=== PATIENT | male | born 1950 | race Caucasian/White ===

== ENCOUNTER 2016-06-07 16:00 | Outpatient (RCR) | payer BC ==
[~2016-06-07 16:00] MED LIST: ASPIRIN E.C. 8181 MG PO; FLOMAX 0.40.4 MG/CAP PO; SYNTHROID0.075 MG/T PO; ZESTRIL 10MG10 MG PO
== END 2016-06-27 08:42 | disposition home or self-care (01) ==
LOC: MKS.ESL.PT 16:00
DX: R10.31 Right lower quadrant pain (principal); M25.561 Pain in right knee

== ENCOUNTER 2021-09-24 20:44 | Emergency (ER) | payer BC ==
[~2021-09-24] VITALS: Ht 157.5 cm; Wt 120.5 kg
[2021-09-24 21:27] LABS: BASO % 0.2 % (0.0-2.0); EOS # 0.1 K/mm3 (0.0-0.7); EOS % 0.7 % (0.0-4.0); GRAN # 14.5 K/mm3 (1.4-6.5); GRAN % 88.7 % (42.2-75.2); HEMATOCRIT 40.4 % (42.0-52.0); LYMPH # 0.5 K/mm3 (1.2-3.4); LYMPH % 3.1 % (20.0-51.0); MEAN CELL VOLUME 92 fl (80.0-100.0); MEAN CORPUSCULAR HEMOGLOBIN 32 pg (27-31); MEAN CORPUSCULAR HGB CONC 35 g/dl (33.0-37.0); MEAN PLATELET VOLUME 9.1 fl (7.4-10.4); MONO # 1.1 K/mm3 (0.1-0.6); MONO % 6.9 % (1.7-9.3); PLATELET COUNT 337 K/mm3 (130-400); RED BLOOD COUNT 4.41 M/mm3 (4.20-5.60); REDCELL DISTRIBUTION WIDTH-CV 12.9 % (11.5-14.5)
[2021-09-24 21:51] LABS: ALANINE AMINOTRANSFERASE 20 U/L (0-55); ALBUMIN 3.8 gm/dL (3.4-4.8); ALKALINE PHOSPHATASE 73 U/L (40-150); ANION GAP 11 mmol/L (7-16); AST,SGOT 16 U/L (5-34); BILIRUBIN,TOTAL 0.6 mg/dL (0.2-1.2); BLOOD UREA NITROGEN 28 mg/dL (8-26); C-REACTIVE PROTEIN 2.27 mg/dL (0.00-0.50); CALCIUM 8.9 mg/dL (8.4-10.2); CARBON DIOXIDE 19 mmol/L (23-31); CHLORIDE 104 mmol/L (98-107); CREATINE KINASE 97 U/L (30-200); CREATININE, serum 1.25 mg/dL (0.72-1.25); GLUCOSE 162 mg/dL (70-99); MAGNESIUM 1.8 mg/dL (1.6-2.6); POTASSIUM 4.8 mmol/L (3.5-4.5); SODIUM 134 mmol/L (136-145); TOTAL PROTEIN 6.9 gm/dL (6.2-8.1)
[2021-09-24 22:03] LABS: TROPONIN-I < 0.010 ng/mL (0.00-0.033)
[2021-09-24 22:27] LABS: ACETONE,SERUM NEGATIVE
[2021-09-25 00:55] VITALS: BP 121/67; PULSE 70; TEMP 98.7
== END 2021-09-25 00:55 | disposition home or self-care (01) ==
LOC: COL.ER 20:44
PROVIDERS: Emergency Medicine
DX: E11.65 Type 2 diabetes mellitus with hyperglycemia (principal); R79.1 Abnormal coagulation profile
CPT/HCPCS: J7030; Q9967

== ENCOUNTER 2023-02-18 06:47 | Day surgery (SDC) | payer MEDICARE, OTHER ==
[2023-02-18] VITALS (12 sets, daily range): BP systolic 113–151; BP diastolic 55–83; PULSE 52–76; TEMP 97.4–98
[~2023-02-18] VITALS: Ht 177.8 cm; Wt 120.3 kg
[2023-02-18] MEDS ORDERED: COZAAR100 MG PO (07:31)
[2023-02-18] MEDS ORDERED: TRULICITY0.75 MG/0. SQ (07:31)
[2023-02-18] MEDS ORDERED: ALDACTONE50 MG PO (07:32)
--- NOTE | 2023-02-18 07:35 | NUR ---
PATIENT AMBULATED TO BAY 1 WITH STEADY GAIT. ALERT AND ORIENTED X4. PATIENT STATED UNDERSTANDING OF PROCEDURE. CONSENT SIGNED. ASSESSMENT COMPLETED. 18G IV STARTED IN RIGHT FOREARM. LR INFUSING WITHOUT DIFFICULTIES. BLOOD GLUCOSE 112. YENY HOSE APPLIED TO NON-OPERATIVE EXTREMITY. WARM BLANKET PROVIDED. NO FURTHER NEEDS NOTED. RESTING IN COT. CALL LIGHT IN REACH. AT BEDSIDE.
--- NOTE | 2023-02-18 12:24 | NUR ---
Initial visit: Equal Employment Opportunity Officer stopped by room on rounds. Pt was resting and content with by his side. Pt has no needs right now. Equal Employment Opportunity Officer will follow up as needed.
--- NOTE | 2023-02-18 13:11 | NUR ---
Patient has done well post op. Vss on room air. Tolerated diabetic diet. [facility] rounded. Plan of care reviewed. Pain managed at this time with tylenol. Cms intact. Arian & scds. Left knee drg CDI. Will monitor.
--- NOTE | 2023-02-18 14:50 | NUR ---
Patient up to chair with therapy, did well. Continues to deny the need for narcotic pain medication
--- NOTE | 2023-02-18 17:04 | NUR ---
Patient up to the bathroom & was able to void without difficulty. His pain increased after the movement. Pain increased from 3 to 6. Pain pill per request. Dressing intact. Ice on. His at bedside.
--- NOTE | 2023-02-18 19:10 | NUR ---
Patient sitting in chair. Encouraged to take patient home medication home. Educated patient and that staff will administer all medication and patient not to take any medications on his own. REport to asha
--- NOTE | 2023-02-18 19:18 | NUR ---
REPORT RECIEVED FROM CHAPITO DAUGHERTY. PT RESTING IN RECLINER WITH AT BEDSIDE. PT A&O X4. CALL LIGHT IN PLACE. ALL NEEDS MET AT THIS TIME.
--- NOTE | 2023-02-18 22:22 | NUR ---
SHIFT ASSESSMENT COMPLETE, SEE DOCUMENTATION. PT REPORTS PAIN IN THE LEFT KNEE AND PRN WAS ADMINISTERED. PT ASSISTED TO BED UTILIZING GAIT BELT AND WALKER, GAIT STEADY. CALL LIGHT IN PLACE. ALL NEEDS MET AT THIS TIME.
[2023-02-19 03:49] VITALS: BP 143/70; PULSE 50; TEMP 98.1
--- NOTE | 2023-02-19 05:54 | NUR ---
PT C/O LEFT HIP PAIN AFTER AMBULATING TO BATHROOM. PRN OXYCODONE ADMINISTERED WITH SCHEDULED TYLENOL. PT BACK IN BED. 65CC DRAINED FROM HEMOVAC. CALL LIGHT IN PLACE. ALL NEEDS MET AT THIS TIME.
[2023-02-19 06:44] LABS: HEMOGLOBIN 12.3 g/dl (13.5-18.0)
[2023-02-19 07:00] VITALS: BP 134/62; PULSE 60; TEMP 98.2
[2023-02-19 07:01] LABS: CALCIUM 8.9 mg/dL (8.4-10.2); CREATININE, serum 1.28 mg/dL (0.72-1.25); POTASSIUM 4.6 mmol/L (3.5-4.5)
[2023-02-19 10:50] VITALS: BP 138/66; PULSE 54; TEMP 98.2
--- NOTE | 2023-02-19 12:37 | NUR ---
soaking tank worker met with patient and to discuss discharge planning. Patient confirmed he lives in [place] with his , Roselia, P# [phone]. Patient confirmed his primary care physician is Dr. Brown and preferred pharmacy is [facility] in [place]. Patient denied any difficulty affording his medications. Patient expressed his DPOA-HC is Roselia, his . Patient had a walker and CPAP machine at home. Patient expressed he is independent with his ADLS. soaking tank worker asked about outpatient PT. Patient and expressed his outpatient PT was already scheduled through [facility]. Patient plans to return home at time of discharge with outpatient PT. soaking tank worker attempted to contact the [facility] to confirm patient's appointment; however, they were closed for the day. Discharge Plan: Home with Outpatient PT
[2023-02-19] MEDS ORDERED: NORCO 325 MG-51 TAB PO (13:13)
[2023-02-19] MEDS ORDERED: CEPHALEXIN500 M1 PO (13:13)
[2023-02-19] MEDS ORDERED: ASPI325T6 PO (13:14)
--- NOTE | 2023-02-19 15:16 | NUR ---
DOLORES MOREAU ROUNDED ON PT THIS PM. DISCHARGE INSTRUCTIONS REVIEWED WITH PT AND FAMILY. QUESTIONS ANSWERED, PT LEFT UNIT PER WHEEL CHAIR WITH STAFF.
== END 2023-02-19 15:20 | disposition home or self-care (01) ==
LOC: SDCO 06:47 → SURG 06:47 → SDCO 07:30 → SURG 10:08 → SDCO 02-19 15:20
PROVIDERS: Physician Assistant
DX: M17.12 Unilateral primary osteoarthritis, left knee (principal); G89.18 Other acute postprocedural pain; N40.0 Benign prostatic hyperplasia without lower urinary tract symptoms; I10 Essential (primary) hypertension; E11.9 Type 2 diabetes mellitus without complications; E03.9 Hypothyroidism, unspecified; G47.33 Obstructive sleep apnea (adult) (pediatric); Z99.81 Dependence on supplemental oxygen; Z79.890 Hormone replacement therapy; Z79.84 Long term (current) use of oral hypoglycemic drugs; Z79.82 Long term (current) use of aspirin
CPT/HCPCS: OP; A9284; C1713; C1776; J0690; J1100; J1580; J2250; J2270; J2704; J2795